=== PATIENT | female | born 1985 | race African-American/Black ===

== ENCOUNTER 2023-05-05 02:19 | Emergency (ER) | payer OTHER, SELFPAY ==
[2023-05-05 02:26] VITALS: BP 152/105; PULSE 60; RESP 20; TEMP 36.7; O2SAT 100; BMI 27.3
--- NOTE | 2023-05-05 02:41 | ED_ITS ---
HPI - Dental/Oral General Chief complaint: Dental/Oral Stated complaint: TOOTH PAIN Time Seen by Provider: 05/05/23 02:28 Source: patient Mode of arrival: walk-in History of Present Illness HPI Narrative: Patient presents to emergency department complaining of left upper pain. Patient had a filling that fell out couple weeks ago. She denies any swelling, or drainage. Denies any sore throat or difficulty swallowing. States the pain radiates to her ear, and for headache. Patient has taken Tylenol for pain without any relief. She has a history of rheumatoid arthritis and is on methotrexate so states that she can't take a lot of medications. Related Data Home Medications Medication Instructions Recorded Confirmed famotidine 20 mg tablet 20 mg PO DAILY 05/05/23 05/05/23 folic acid 1 mg tablet 1 mg PO DAILY 05/05/23 05/05/23 methotrexate sodium 2.5 mg tablet 10 mg PO .weekly 05/05/23 05/05/23 prednisone 5 mg tablet 15 mg PO DAILY PRN Swelling/pain 05/05/23 05/05/23 Previous Rx's Medication Instructions Recorded clindamycin HCl 300 mg capsule 300 mg PO Q8H 7 days #21 caps 05/05/23 hydrocodone 5 mg-acetaminophen 325 1 tab PO Q6H PRN pain 5 days #10 05/05/23 mg tablet tabs Allergies Allergy/AdvReac Type Severity Reaction Status Date / Time No Known Drug Allergies Allergy Verified 05/05/23 02:26 Review of Systems ROS Status of ROS 10 or more systems reviewed and unremarkable except as noted in history and below Exam Narrative Exam Narrative: General: The patient is comfortable, alert and oriented x3, well appearing, non toxic in no apparent distress. Head: Atraumatic and normocephalic. Eyes: Normal conjunctiva ENT: The oropharynx is normal. No pharyngeal erythema, uvular edema, tonsillar exudates, asymmetry or trismus. Uvula is midline. Mouth is normal to inspection with the exception of a pain on percussion of the tooth #5 and evidence of dental caries. There is no evidence of facial asymmetry or abscess formation. Floor of the mouth is soft. No tenderness in the submental or submandibular space. No tongue elevation or deviation. The patient has no evidence of valerio apical abscess, gingivitis or other acute pathology. Airway is patent. Neck: The neck demonstrates normal range of motion. No meningeals signs are present. No stridor. No masses or lymphandenopathy noted. Respiratory: No acute distress, lungs are clear to auscultation, no wheezing, rhonchi, or rales noted. No stridor or retractions are noted. Cardiovascular: Regular rate and rhythm Skin: The skin exam shows no evidence of rashes Neuro: Alert and oriented x4, normal speech Lymphatic: No cervical lymphadenopathy Constitutional Vital Signs, click to edit/add: Last Vital Signs Temp 98.1 F 05/05/23 02:26 Pulse 60 05/05/23 02:26 Resp 20 05/05/23 02:26 BP 152/105 H 05/05/23 02:26 Pulse Ox 100 05/05/23 02:26 O2 Del Method Room Air 05/05/23 02:26 Course Vital Signs Vital signs: Vital Signs Temperature 98.1 F 05/05/23 02:26 Pulse Rate 60 05/05/23 02:26 Respiratory Rate 20 05/05/23 02:26 Blood Pressure 152/105 H 05/05/23 02:26 Pulse Oximetry 100 05/05/23 02:26 Oxygen Delivery Method Room Air 05/05/23 02:26 Temperature 98.1 F 05/05/23 02:26 Pulse Rate 60 05/05/23 02:26 Respiratory Rate 20 05/05/23 02:26 Blood Pressure 152/105 H 05/05/23 02:26 Pulse Oximetry 100 05/05/23 02:26 Oxygen Delivery Method Room Air 05/05/23 02:26 MDM - Dental/Oral MDM Narrative Medical decision making narrative: Patient given a prescription for clindamycin, and Mena. Patient advised follow-up with dentist Sunday morning. No additional indication for emergent studies at this time. I answered all questions. Discussed discharge instructions including standard anticipatory guidance and what should prompt a return to the emergency department, including if they get worse are not getting better or develops any new or concerning symptoms. I've given them specific time frame in which to follow-up, and who to follow-up with. The patient demonstrates understanding. Patient is nontoxic and stable for discharge with outpatient follow-up. This note was created with the assistance of a speech recognition program. Although the intention is to generate documents that actually reflects the content of the visit, no guarantees can be provided that every mistake has been identified and corrected by editing. Discharge Plan Discharge Chief Complaint: Dental/Oral Clinical Impression: Dental caries Patient Disposition: Home, Self-Care Time of Disposition Decision: 02:54 Condition: Good Mode of Transportation: Private Vehicle Prescriptions / Home Meds: New hydrocodone-acetaminophen 5-325 mg tablet 1 tab PO Q6H PRN (Reason: pain) 5 Days Qty: 10 0RF clindamycin HCl 300 mg capsule 300 mg PO Q8H 7 Days Qty: 21 0RF No Action famotidine 20 mg tablet 20 mg PO DAILY Rx Instructions: HS folic acid 1 mg tablet 1 mg PO DAILY methotrexate sodium 2.5 mg tablet 10 mg PO .weekly prednisone 5 mg tablet 15 mg PO DAILY PRN (Reason: Swelling/pain) Instructions: Toothache (ED) Stand Alone Forms: Portal Instructions Referrals: Physician,Non-Staff, MD [Primary Care Provider] - 1 week Discharge Date/Time: 05/05/23 03:18
--- NOTE | 2023-05-05 02:42 | PC.NURSE ---
patient states she has two broken teeth left upper. Broken for over a year. Pain began today and worsening
[2023-05-05] MEDS: HYDROCODONE/ACETAMINOPHEN 5-325 MG TABLET 1 TAB PO (03:15)
== END 2023-05-05 03:18 | disposition home or self-care (01) ==
PROVIDERS: Emergency Provider Emergency Medicine
DX: K02.9 Dental caries, unspecified (principal); Z79.899 Other long term (current) drug therapy
CPT/HCPCS: 99283

== ENCOUNTER 2023-06-19 16:32 | Emergency (ER) | payer OTHER, SELFPAY ==
[2023-06-19 16:49] VITALS: BP 114/73; PULSE 62; RESP 18; TEMP 36.8; O2SAT 99; BMI 25.4
--- NOTE | 2023-06-19 17:29 | ED.DENTAL1 ---
HPI - Dental/Oral General Chief complaint: Dental/Oral Stated complaint: DENTAL PAIN Time Seen by Provider: 06/19/23 17:23 Source: patient Mode of arrival: walk-in History of Present Illness HPI Narrative: patient is a 38-year-old female who presents to the emergency department for continued issues with her teeth. She was seen in this emergency department two months ago for the same. She states she has seen her dentist multiple times in the keep doing procedures to try to save her teeth but she states she would like the tooth pulled and has an appointment pending for this. She states a small chunk of the tooth broke off several days ago when she has had an increase in pain to the left side of the face/left maxilla. She denies a possibility of . No medications taken prior to arrival today. She has not had any significant drainage from the teeth, no fevers or difficulty swallowing. Related Data Home Medications Medication Instructions Recorded Confirmed famotidine 20 mg tablet 20 mg PO DAILY 05/05/23 05/05/23 folic acid 1 mg tablet 1 mg PO DAILY 05/05/23 05/05/23 methotrexate sodium 2.5 mg tablet 10 mg PO .weekly 05/05/23 05/05/23 prednisone 5 mg tablet 15 mg PO DAILY PRN Swelling/pain 05/05/23 05/05/23 Previous Rx's Medication Instructions Recorded clindamycin HCl 300 mg capsule 300 mg PO Q8H 7 days #21 caps 05/05/23 hydrocodone 5 mg-acetaminophen 325 1 tab PO Q6H PRN pain 5 days #10 05/05/23 mg tablet tabs clindamycin HCl 150 mg capsule 300 mg PO Q6H 10 days #80 caps 06/19/23 ketorolac 10 mg tablet 10 mg PO TID PRN pain #10 tabs 06/19/23 ondansetron 4 mg disintegrating 4 mg PO Q6H PRN nausea and 06/19/23 tablet vomiting #12 tabs Allergies Allergy/AdvReac Type Severity Reaction Status Date / Time No Known Drug Allergies Allergy Verified 05/05/23 02:26 Review of Systems ROS Constitutional Denies: fever or chills Ears, nose, mouth, and throat Denies: throat pain Respiratory Denies: shortness of breath or cough Gastrointestinal Denies: nausea or vomiting Integumentary/Breast Denies: rash Endocrine Denies: excessive urination Hematologic/Lymphatic Denies: easy bruising Exam Narrative Exam Narrative: Gen.: Awake, alert, in no distress Head: Normocephalic, atraumatic ENT: Moist mucous membranes, multiple dental caries, tooth #13 with multiple erosions noted and root exposure. Gumline is edematous but there is no visible abscess or drainage. Uvula midline with airway widely open and patent. Clear speech. No trismus or drooling; no swelling of the mandible or maxilla, left tympanic membrane is clear Respiratory: No respiratory distress Extremities: Moves extremities equally Psych: Normal mood and affect Neuro: No focal neuro deficit Skin: Warm, dry, intact Constitutional Vital Signs, click to edit/add: Last Vital Signs Temp 98.3 F 06/19/23 16:49 Pulse 62 06/19/23 16:49 Resp 18 06/19/23 16:49 BP 114/73 06/19/23 16:49 Pulse Ox 99 06/19/23 16:49 O2 Del Method Room Air 06/19/23 16:49 Course Vital Signs Vital signs: Vital Signs Temperature 98.3 F 06/19/23 16:49 Pulse Rate 62 06/19/23 16:49 Respiratory Rate 18 06/19/23 16:49 Blood Pressure 114/73 06/19/23 16:49 Pulse Oximetry 99 06/19/23 16:49 Oxygen Delivery Method Room Air 06/19/23 16:49 Temperature 98.3 F 06/19/23 16:49 Pulse Rate 62 06/19/23 16:49 Respiratory Rate 18 06/19/23 16:49 Blood Pressure 114/73 06/19/23 16:49 Pulse Oximetry 99 06/19/23 16:49 Oxygen Delivery Method Room Air 06/19/23 16:49 MDM - Dental/Oral MDM Narrative Medical decision making narrative: patient treated for dental caries with clindamycin,topical analgesia and NSAIDs. She is given a referral for additional local dentistry. return to the Emergency Room if symptoms change or worsen. Discharge Plan Discharge Chief Complaint: Dental/Oral Clinical Impression: Dental caries, Toothache Patient Disposition: Home, Self-Care Time of Disposition Decision: 17:24 Condition: Good Prescriptions / Home Meds: New clindamycin HCl 150 mg capsule 300 mg PO Q6H 10 Days Qty: 80 0RF ketorolac 10 mg tablet 10 mg PO TID PRN (Reason: pain) Qty: 10 0RF ondansetron 4 mg tablet,disintegrating 4 mg PO Q6H PRN (Reason: nausea and vomiting) Qty: 12 0RF No Action famotidine 20 mg tablet 20 mg PO DAILY Rx Instructions: HS folic acid 1 mg tablet 1 mg PO DAILY methotrexate sodium 2.5 mg tablet 10 mg PO .weekly prednisone 5 mg tablet 15 mg PO DAILY PRN (Reason: Swelling/pain) hydrocodone-acetaminophen 5-325 mg tablet 1 tab PO Q6H PRN (Reason: pain) 5 Days Qty: 10 0RF clindamycin HCl 300 mg capsule 300 mg PO Q8H 7 Days Qty: 21 0RF Instructions: Toothache (ED) Additional Instructions: Follow up with dental Stand Alone Forms: Portal Instructions Referrals: FAMILY,[facility] [Primary Care Provider] - 1 week
[2023-06-19] MEDS: BENZOCAINE 30 ML, lidocaine HCL 15 ML MM (17:45)
== END 2023-06-19 17:48 | disposition home or self-care (01) ==
PROVIDERS: Emergency Provider Emergency Medicine Emergency Medical Services
DX: K02.9 Dental caries, unspecified (principal); K08.89 Other specified disorders of teeth and supporting structures; Z79.899 Other long term (current) drug therapy
CPT/HCPCS: 99283

== ENCOUNTER 2025-10-14 05:46 | Emergency (ER) | payer OTHER, SELFPAY ==
--- OUTSIDE RECORDS SUMMARY | 2021-05-30 08:45 | XMS_ITS | Continuity of Care Document ---
Author Organization [facility] Address [address] [place] [address] Phone Care Team Providers Care Occupational Therapy Supervisor Name Role Phone Fede Leonardo Unavailable Unavailable Allergies, Adverse Reactions, Alerts Substance Reaction Status Criticality No Known allergies Procedures Procedure Date Covid Testing [facility] PREV VISIT, [facility] [place], AGE 18-39 CHLAMYDIA & N GONORRHOEAE DNA, SDA OFFICE/OUTPATIENT VISIT, [facility] SPECIMEN HANDLING CARE COORDINATION RISK ASSISSMENT COUNSELING AND EDUCATION OFFICE/OUTPATIENT VISIT, EST ROUTINE VENIPUNCTURE CARE COORDINATION OFFICE/OUTPATIENT VISIT, EST ROUTINE VENIPUNCTURE COUNSELING AND EDUCATION CARE COORDINATION OFFICE/OUTPATIENT VISIT, [facility] TB INTRADERMAL TEST HIGH RISK PATIENT MONITORING COUNSELING AND EDUCATION OFFICE/OUTPATIENT VISIT, [facility] ROUTINE VENIPUNCTURE CARE COORDINATION OFFICE/OUTPATIENT VISIT, [facility] [place] SPECIMEN HANDLING CARE COORDINATION COUNSELING AND EDUCATION URINALYSIS, AUTO, W/O SCOPE ASSAY OF URINE CREATININE URINE TEST OFFICE/OUTPATIENT VISIT, [facility] ROUTINE VENIPUNCTURE RISK ASSISSMENT CARE COORDINATION COUNSELING AND EDUCATION OFFICE/OUTPATIENT VISIT, EST URINE TEST PREV VISIT, EST, AGE 18-39 SPECIMEN HANDLING URINE TEST Contraceptive pills for bc THIN PREP PAP W/REFLEX TO ASCUS 009 Advance Directives Directive Yes / No Effective Date File Name No Information Encounters Encounter Description Practice Location Reason(s) For Visit Diagnoses Date Provider Providers Copied on Encounter [facility], [address], [place], [id number], [place] tel:[phone] [facility] No Information Hari Caputo. [address], [place], [id number], [place]. tel:[phone] PREV VISIT, NEW, AGE 18-39 [facility], [address] [place], [place], [id number], [place] tel:[phone] [facility] STI female (chief complaint) Screening examination for venereal disease Natalie Walton. [address], [place], [id number], [place]. tel:[phone] OFFICE/OUTPAT IENT VISIT, [facility], [address], [place], [id number], [place] tel:[phone] [facility] No Information Kal Howard. [address], [place], [id number]. tel:[phone] OFFICE/OUTPAT IENT VISIT, [facility], [address], [place], [id number], [place] tel:[phone] [facility] No Information Hari Caputo. [address], [place], [id number], [place]. tel:[phone] OFFICE/OUTPAT IENT VISIT, [facility], [address], [place], [id number], [place] tel:[phone] [facility] No Information Yonasi DO Mistry. [address], [place], [id number], [place]. tel:[phone] OFFICE/OUTPAT IENT VISIT, [facility], [address], [place], [id number], [place] tel:[phone] [facility] No Information Kal Howard. [address], [place], [id number]. tel:[phone] OFFICE/OUTPAT IENT VISIT, [facility], [address], [place], [id number], [place] tel:[phone] [facility] No Information Yonasi DO Mistry. [address], [place], [id number], [place]. tel:[phone] OFFICE/OUTPAT IENT VISIT, [facility], [address], [place], [id number], [place] tel:[phone] [facility] No Information Frank Chun. [address], [place], [id number]. tel:[phone] OFFICE/OUTPAT IENT VISIT, [facility], [address], [place], [id number], [place] tel:[phone] [facility] No Information Josh Og. [address], [place], [id number], [place]. tel:[phone] OFFICE/OUTPAT IENT VISIT, [facility], [address], [place], [id number], [place] tel:[phone] [facility] No Information Frank Chun. [address], [place], [id number]. tel:[phone] PREV VISIT, [facility], AGE 18-39 [facility], [address], [place], [id number], tel:[phone] [facility] No Information Kal Howard. [address], [place], [id number]. tel:[phone] Family History Family Member Type Diagnosis Age At Onset No Information Payers Payer name Insurance type Covered libertarian ID Authoriza tion(s) No Information Social History Type Description Quantity Date Captured Comments Sex Female Smoking Status No Information Sexual Orientation Straight or heterosexual Gender Identity Female Chief Complaint And Reason For Visit No Information Reason For Referral Reason For Referral No Information Plan Of Treatment Date Type Action Status Goal Tobacco cessation counseling completed History Of Present Illness Encounter Date Complaint History Of Prese nt Illness No Information Functional Status Date Functional Assessmen t No Information Instructions Date Instruction Additional Infor mation Avoid sexual activit y while you await your test results. Related to Screening examination for venereal disease No treatment indicat ed today. Call for test results. Related to Screening examination for venereal disease Assessments Type Assessment Date No Information Patient Care Teams Name Effective Dates (start - stop) Status Members No Information
--- OUTSIDE RECORDS SUMMARY | 2025-01-12 08:00 | XMS_ITS ---
Author Organization [facility] Address [address] [facility] [place] [address] Care Team Providers Care Booth Cashier Name Role Phone Shaw Ley Primary Care Provider [phone] Don Lamar [phone] REASON FOR VISIT ANNUAL [place] Encounters Encounter Location Date Provider Diagnosis [facility] [address] [place] [address] 01/12/2025 Don Lamar Plan Of Treatment No Information Progress Notes * MARY MORENOOB:1985 (40 yo F)Acc No.[id number]:01/12/2025 Annual Wellness Visit Patient: PEPE BLAIR Provider:?CLYDE SimmsOB:1985 ???Age:40 Y???Sex:FemaleDate:01/12/2025Phone:[phone]:[address] [place], [place] [id number]:Shaw Ley Subjective: * Chief Complaints: * A NNUAL [place] Billing Information: * Procedure Codes: * Electronic signature of Don Lamar DO on 10/14/2025 at 06:43 AM ESTSign off status: Pending * Appointment Provider: Lexy Lamar DO Date: 0 01/12/2025 Generated for Printing/Faxing/eTransmitting on:?10/14/2025 06:43 AM EST
[2025-10-14] VITALS (8 sets, daily range): BP systolic 114–124; BP diastolic 66–79; PULSE 71; TEMP 36.8; O2SAT 97–100; BMI 29.1
[2025-10-14 06:20] LABS: Hematocrit 36.0 % (36.0-48.0); Hemoglobin 12.2 g/dL (12.0-16.0); Mean Corpuscular HGB Conc 33.9 g/dL (29.9-35.2); Mean Corpuscular Hemoglobin 31.3 pg (26.7-34.0); Mean Corpuscular Volume 92.3 fL (81.0-99.0); Platelet Count 356 10^3/uL (150-450); Red Blood Count 3.90 10^6/uL (4.20-5.40); White Blood Count 7.1 10^3/uL (4.0-11.0)
--- NOTE | 2025-10-14 06:28 | ED.NAVMDI1 ---
HPI - Nausea/Vomiting/Diarrhea General Chief complaint: Nausea/Vomiting/Diarrhea Stated complaint: VOMITING, CHEST CONGESTION, BODY ACHES Time Seen by Provider: 10/14/25 05:53 Source: patient Mode of arrival: Wheelchair Limitations: no limitations History of Present Illness HPI Narrative: This 40-year-old female presents for evaluation of nausea, vomiting, diarrhea, fevers, chills, body aches with a cough and congestion. Her significant other works for the [employer] and had similar symptoms over the holiday week. She states her symptoms started 2 days ago with a cough, chills and bodyaches but now she has nausea vomiting and diarrhea. She states she cannot keep anything down. She has a history of rheumatoid arthritis and the chills and forceful vomiting is making her rheumatoid worse. She denies any chest pain. She is mildly short of breath and wheezing. She admits to tobacco use. She denies the possibility of . She is not having any urinary symptoms. Related Data Home Medications ?Medication ?Instructions ?Recorded ?Confirmed famotidine 20 mg tablet 20 mg PO DAILY 05/05/23 05/05/23 folic acid 1 mg tablet 1 mg PO DAILY 05/05/23 05/05/23 methotrexate sodium 2.5 mg tablet 10 mg PO .weekly 05/05/23 05/05/23 prednisone 5 mg tablet 15 mg PO DAILY PRN Swelling/pain 05/05/23 05/05/23 Previous Rx's ?Medication ?Instructions ?Recorded clindamycin HCl 300 mg capsule 300 mg PO Q8H 7 days #21 caps 05/05/23 hydrocodone 5 mg-acetaminophen 325 1 tab PO Q6H PRN pain 5 days #10 05/05/23 mg tablet tabs clindamycin HCl 150 mg capsule 300 mg (2 x 150 mg) PO Q6H 10 days 06/19/23 #80 caps ketorolac 10 mg tablet 10 mg PO TID PRN pain #10 tabs 06/19/23 ondansetron 4 mg disintegrating 4 mg PO Q6H PRN nausea and 06/19/23 tablet vomiting #12 tabs Allergies Allergy/AdvReac Type Severity Reaction Status Date / Time No Known Drug Allergies Allergy Verified 10/14/25 05:53 Review of Systems ROS Status of ROS 10 or more systems reviewed and unremarkable except as noted in history and below PFSH PFS Social History Little interest or pleasure in doing things: not at all Feeling down, depressed, or hopeless: not at all Exam Narrative Exam Narrative: Vital signs and Nursing Notes reviewed: Patient is afebrile with a normal pulse, normal blood pressure, she is not hypoxic with pulse ox of 99% on room air General: Awake, alert, oriented, nontoxic but uncomfortable appearing adult female, positive dry heaves, no respiratory distress HEENT: Normocephalic atraumatic, mucous membranes are pink and dry, no posterior pharyngeal erythema or exudate, no peritonsillar abscess Neck: Supple, no meningeal signs, no anterior or posterior cervical lymphadenopathy Chest: Lungs are clear to auscultation with good air entry, there is no wheezing rhonchi or rales appreciated no accessory muscle use, patient is speaking in complete sentences-no chest wall tenderness to palpation CVS: Regular rate and rhythm S1-S2, no murmurs rubs or gallops, pulses are brisk and equal bilaterally ABD: Soft, nondistended, nontender, no rebound guarding or rigidity, bowel sounds are normal, no pulsatile masses appreciated Extremities: Moving all extremities, no lower extremity tenderness or swelling noted Skin: Normal in appearance without rash,pallor, petechiae or purpura Neuro: No focal deficits Constitutional Vital Signs, click to edit/add: Last Vital Signs Temp 98.2 F 10/14/25 05:53 Pulse 71 10/14/25 05:53 Resp 18 10/14/25 05:53 BP 114/66 10/14/25 05:53 Pulse Ox 99 10/14/25 05:53 O2 Del Method Room Air 10/14/25 05:53 Course Vital Signs Vital signs: Vital Signs Temperature 98.2 F 10/14/25 05:53 Pulse Rate 71 10/14/25 05:53 Respiratory Rate 18 10/14/25 05:53 Blood Pressure 114/66 10/14/25 05:53 Pulse Oximetry 99 10/14/25 05:53 Oxygen Delivery Method Room Air 10/14/25 05:53 Temperature 98.2 F 10/14/25 05:53 Pulse Rate 71 10/14/25 05:53 Respiratory Rate 18 10/14/25 05:53 Blood Pressure 114/66 10/14/25 05:53 Pulse Oximetry 99 10/14/25 05:53 Oxygen Delivery Method Room Air 10/14/25 05:53 MDM - Nausea/Vomiting/Diarrhea MDM Narrative Medical decision making narrative: This 40-year-old female the history of rheumatoid arthritis presents for evaluation of 2 days of fevers, chills, body aches, cough with chest congestion and most recent development of nausea vomiting and diarrhea yesterday. She states she cannot keep anything down. Her significant other who is here with her states he brought this illness home from work. He works at the [employer] and became ill over the holiday. She is nontoxic but unwell with dry heaves, her vital signs are stable, she does have some mild expiratory wheezing. Abdomen is soft. Mucous membranes are dry. An IV was placed and she was medicated with IV fluids, Zofran, Toradol and Pepcid. Influenza, CBC and comprehensive metabolic profile was ordered. She has a normal white count and stable hemoglobin. Electrolytes are normal with a mildly low potassium at 3.3. Influenza is negative. 1 view chest x-ray was ordered. Lab Data Labs: Lab Results 10/14/25 10/14/25 Range/Units 06:10 06:27 WBC 7.1 (4.0-11.0) 10^3/uL RBC 3.90 L (4.20-5.40) 10^6/uL Hgb 12.2 (12.0-16.0) g/dL Hct 36.0 (36.0-48.0) % MCV 92.3 (81.0-99.0) fL MCH 31.3 (26.7-34.0) pg MCHC 33.9 (29.9-35.2) g/dL RDW 14.5 (11.0-15.0) % Plt Count 356 (150-450) 10^3/uL MPV 9.4 L (9.5-13.5) fL Seg Neuts % (Manual) 83.0 H (43.0-75.0) Lymphocytes % (Manual) 2.0 L (20.5-60.0) % Atypical Lymphs % (Man) 10.0 % Monocytes % (Manual) 6.0 (1.7-12.0) % Eosinophils % (Manual) 0.0 L (0.9-7.0) % Basophils % (Manual) 0.0 L (0.2-2.0) % Neutrophils # (Manual) 5.89 (1.4-6.5) 10^3/uL Lymphocytes # (Manual) 0.14 L (1.20-3.80) 10^3/uL Abs Atypical Lymphs Man 0.71 Monocytes # (Manual) 0.42 (0.30-0.80) 10^3/uL Eosinophils # (Manual) 0.00 (0.00-0.70) 10^3/uL Basophils # (Manual) 0.00 (0.00-0.10) 10^3/uL Stomatocytes 2+ Sodium 138 (136-145) mmol/L Potassium 3.3 L (3.5-5.1) mmol/L Chloride 104 (98-107) mmol/L Carbon Dioxide 25.3 (21.0-32.0) mmol/L Anion Gap 12.0 BUN 5.0 L (7.0-18.0) mg/dL Creatinine 0.63 (0.55-1.02) mg/dL Est GFR ( Amer) >60 (>=60 mL/min/1.73m^2) Est GFR (Non-Af Amer) >60 (>=60 mL/min/1.73m^2) BUN/Creatinine Ratio 7.9 Glucose 94 (74-106) mg/dL Calcium 8.9 (8.5-10.1) mg/dL Total Bilirubin 0.5 (0.2-1.0) mg/dL AST 15 (15-37) U/L ALT 19 (14-59) U/L Alkaline Phosphatase 58 (46-116) U/L Total Protein 7.2 (6.4-8.2) g/dL Albumin 3.6 (3.4-5.0) g/dL Globulin 3.6 g/dL Albumin/Globulin Ratio 1.0 Influenza Type A Ag Negative Influenza Type B Ag Negative Discharge Plan Discharge Patient Disposition: Still a Patient
[2025-10-14] MEDS: FAMOTIDINE/PF 20 MG/2 ML VIAL IV (06:30)
[2025-10-14] MEDS: 0.9 % SODIUM CHLORIDE 1,000 ML 1000 ML IV (06:30)
[2025-10-14] MEDS: KETOROLAC TROMETHAMINE 30 MG/ML VIAL IVP (06:31)
[2025-10-14 06:34] LABS: Atypical Lymphocytes % Manual 10.0 %; Atypical Lymphocytes Abs Man 0.71; Basophils Abs Manual 0.00 10^3/uL (0.00-0.10); Basophils Percent Manual 0.0 % (0.2-2.0); Eosinophils Absolute Manual 0.00 10^3/uL (0.00-0.70); Eosinophils Percent Manual 0.0 % (0.9-7.0); Lymphocytes Absolute Manual 0.14 10^3/uL (1.20-3.80); Lymphocytes Percent Manual 2.0 % (20.5-60.0); Monocytes Absolute Manual 0.42 10^3/uL (0.30-0.80); Monocytes Percent Manual 6.0 % (1.7-12.0); Segmented Neut Absolute Manual 5.89 10^3/uL (1.4-6.5); Segmented Neutrophils % Manual 83.0 (43.0-75.0)
[2025-10-14 06:35] LABS: Stomatocytes 2+
[2025-10-14 06:39] LABS: Alanine Aminotransferase 19 U/L (14-59); Albumin Globulin Ratio 1.0; Albumin Level 3.6 g/dL (3.4-5.0); Alkaline Phosphatase 58 U/L (46-116); Anion Gap 12.0; Aspartate Amino Transferase 15 U/L (15-37); Blood Urea Nitrogen 5.0 mg/dL (7.0-18.0); Calcium 8.9 mg/dL (8.5-10.1); Carbon Dioxide 25.3 mmol/L (21.0-32.0); Chloride 104 mmol/L (98-107); Estimated GFR (African America >60 (>=60 mL/min/1.73m^2); Estimated GFR (Non-African Ame >60 (>=60 mL/min/1.73m^2); Globulin 3.6 g/dL; Glucose 94 mg/dL (74-106); Potassium 3.3 mmol/L (3.5-5.1); Sodium 138 mmol/L (136-145); Total Protein 7.2 g/dL (6.4-8.2)
--- OUTSIDE RECORDS SUMMARY | 2025-10-14 06:43 | XMS_ITS | Clinical Summary ---
Author Organization [facility] tem Address [id number] [address] [place] [address] Care Team Providers Care Weigher Bulker Name Role Phone Unavailable Primary Care Provider Unavailabl e Allergies No known active allergies Medications MedicationSigDispense QuantityRefillsLast FilledStart DateEnd DateStatus famotidine (PEPCID) 20 mg tablet Take 1 tablet (20 mg total) by mouth nightly as needed.5Active ergocalciferol (VITAMIN D2) 1,250 mcg (50,000 unit) capsule Indications:Vitamin D deficiencyCapsule weekly for 8 weeks then once monthly 12 capsule 5Active amitriptyline (ELAVIL) 10 mg tablet Indications:Rheumatoid arthritis, involving unspecified site, unspecified whether rheumatoid factor present ([facility])One capsule at 8 PM each night 30 tablet 5Active methotrexate 2.5 mg chemo tablet Indications:Rheumatoid arthritis, involving unspecified site, unspecified whether rheumatoid factor present ([facility]),Methotrexate, penitentiary, current use Take 1 tablet by mouth once a week 6 tab weekly 24 tablet 5Active tiZANidine (ZANAFLEX) 2 mg tablet Indications:Rheumatoid arthritis, involving unspecified site, unspecified whether rheumatoid factor present ([facility])One tab at 8:00 p.m.each night 30 tablet 5Active folic acid (FOLVITE) 1 mg tablet Indications:Rheumatoid arthritis, involving unspecified site, unspecified whether rheumatoid factor present ([facility]-HCC),Methotrexate, equipment operator intermodal yard, current use Take 1 tablet (1 mg total) by mouth in the morning. 30 tablet 5Active predniSONE (DELTASONE) 5 mg tablet Indications:Rheumatoid arthritis, involving unspecified site, unspecified whether rheumatoid factor present ([facility]-HCC)Take 1 tablet (5 mg total) by mouth in the morning and 1 tablet (5 mg total) before bedtime. 30 tablet tive Active Problems No known active problems Encounters DateTypeDepartmentCare DpepPahhvojtqji43/11/2025Refill [facility] [address] [place] [address] Sarita Ortiz MD Rheumatoid arthritis, involving unspecified site, unspecified whether rheumatoid factor present ([facility])08/29/2025Refill [facility] [address] [place] [address] Sarita Ortiz MD Rheumatoid arthritis, involving unspecified site, unspecified whether rheumatoid factor present ([facility]); Methotrexate, equipment operator intermodal yard, current use07/22/2025Refill [facility] [address] [place] [address] Sarita Ortiz MD Rheumatoid arthritis, involving unspecified site, unspecified whether rheumatoid factor present ([facility])from Last 3 Months Social History Tobacco UseTypesPacks/DayYears UsedDateSmoking Tobacco: Never Assessed CommentsUnknownSex and Gender InformationValueDate RecordedSex Assigned at Not on fileLegal RzwDlzxds76/27/2025 10:15 AM ESTGender IdentityNot on file Sexual OrientationNot on file Last Filed Vital Signs Vital SignReadingTime TakenCommentsBlood Mumbvmfu496/7405 9:28 AM EDT Pulse--Temperature--Respiratory Kqrb099502/25/2025 9:28 AM EDTOxygen Saturation-- Inhaled Oxygen Concentration--Rkggai28.1 kg (148 lb)02/25/2025 9:28 AM EDTHeight --Body Mass Index-- Plan of Treatment Health MaintenanceDue DateLast DoneCommentsDepression Ghrmbcswk75/30/1995Tobacco Yxicthtut50/30/1995Adult BMI Ldpcvzayv15/30/2001DTaP,Tdap and Td Vaccines (1 - Tdap)2002Pap Smear01/12/2004Influenza Ppzelov40/01/539439/ Medical Devices Not on file
--- OUTSIDE RECORDS SUMMARY | 2025-10-14 06:44 | XMS_ITS | Patient Health Record ---
Author Organization [facility] Address [address] [place] [address] Care Team Providers Care Director Of Casino Marketing Name Role Phone Shaw Ley Primary Care Provider Eliceo Castro Unavailable [phone] Don Lamar Unavailable [phone] Lela Rodriguez Unavailable [phone] Allergies No Known Allergies Reason For Referral Reason REFERRAL OVER 60 DAY S OLD Rheumatoid arthritis. Patient would like a provider closer to the [facility] for closer appointments. Patient lives in [place]. *FAXED 12/11 Diagnosis 1 Rheumatoid arteritis (M05.20) Referral Organization [facility] Referring Provider First Name Don Referring Provider Last Name Willard Referring Provider Speciality [facility] Referred Provider [facility], . Referred Provider Specialty Rheumatology Referral Priority Routine Medications Medication SIG (Take, Route, Frequency, Duration) Notes Start Date End Date Status Amitriptyline HCl 10 MG Tablet 1 tablet at bedti me Orally Once a day ActivetiZANidine HCl 2 MG Tablet1 tablet at bedtime as needed Orally Once a day ActivepredniSONE 5 MG Tablet1 TABLET ORALLY TWICE DAILY; Duration: 30 daysActive Methotrexate 2.5 MG Tablet4 TABLETS Orally once a week; Duration: 28 daysActive Famotidine 20 MG TabletTAKE 1 TABLET BY MOUTH EVERY DAY AT BEDTIME ONLY NEEDED; Duration: 90ActiveFolic Acid 1 MG Tablet1 tablet Orally Once a dayActive Vitamin D2 10 MCG (400 UNIT) TabletTAKE 2 TABLETS BY MOUTH EVERY DAY; Duration: 90ActiveDiclofenac Sodium 1 % GelAPPLY TO AFFECTED AREA DAILY NEEDED FOR 30 DAYS; Duration: 30Active Immunizations Vaccine Route Administration Date Status Comme nts Pneumococcal 20 - PREVNAR 20 IM Intramuscular 11/27/2022 Administered Influenza 3+ PRIVATEIM Evtwvecutgdxj43/13/2023dministered Social History Tobacco Use: Social History Observation Description Date Details (start date - stop date) Current Smoker NA - NA Social History Social DeterminantsSocial InfoQuestionAnswerNotesPRAPAREDate Completed/Updated: 12/10/2024What is your current housing situation?I have housingAre you worried about losing your housing?NoWhat is the highest level of school that you have finished?Less than a high school degreeWhat is your current work situation?forwarder operator or temporary workIn the past year, have you or any family members you live with been unable to get any of the following when it was really needed? Check all that applyI do not have problems meeting my needsHas lack of transportation kept you from medical appointments, meetings, work or from getting things needed for daily living?NoHow often do you see or talk to people that you care about and feel close to? (For example: talkingto friends on the phone, visiting friends or family, going to episcopalian or club meetings)More than 5 times a weekHow stressed are you? Stress is when someone feels tense, nervous, anxious, or cant sleep at night because their mind is troubledA little bitIn the past year have you spent more than 2 nights in a row in a long-term, nursing home, longterm center, or juvenile correctional facility?NoAre you a refugee?NoWhat country are you from? [place]Do you feel physically and emotionally safe where you currently live?YesIn the past year, have you been afraid of your partner or ex-partner?No PRAPARE Score:5GeneralSocial InfoQuestionAnswerNotesTransition of Care: ER/UC/hospital since last office visit?NoSpecialist seen since last office visit?NoSubstance abuse/mental health issues of patient/familyPatient - Depression, OtherMARIJUANAAbility to understand healthcare/treatmentPatient:Good Sexual Hx:Had sex in the last 12 months (vaginal, oral, or anal)?Yes? withMen onlySocial/Support Concerns:Patient:NoBehaviors affecting healthPoor/Risky Behaviors:Denies-Communication Barrier:Language Barrier?:NoDrug/Alcohol:Social InfoQuestionAnswerNotesAUDIT-C (Standard)Did you have a drink containing alcohol in the past year?ClPulzwc3LmtxftrmjrsfqbJnblxqzrNujymst Use:Social InfoQuestion AnswerNotesTobacco Control (Standard)Tobacco use:Current smoker? How often do you smoke cigarettes?Every day? How many cigarettes a day do you smoke?11-20? How soon after you wake up do you smoke your first cigarette?Within 5 minutes? Are you interested in quitting?Thinking about quitting Problems Problem Type SNOMED Code ICD Code Onset Dates Problem Status W/U Status Risk Notes Problem Tobacco use (583085990) Tobacco use (Z72. 0) ActiveconfirmedProblemVitamin D deficiency (48685588)Vitamin D deficiency (E55.9)ActiveconfirmedProblemIntermenstrual bleeding - irregular (09247963) Menorrhagia with irregular cycle (N92.1)ActiveconfirmedProblemHand joint pain (578690355)Pain in joints of left hand (M25.542)ActiveconfirmedProblemTobacco user (589661764)Cigarette nicotine dependence without complication (F17.210) ActiveconfirmedProblemRheumatoid arthritis (86725620)Rheumatoid arthritis involving multiple sites with positive rheumatoid factor (M05.79)Activeconfirmed ProblemRheumatoid arteritis (066123726)Rheumatoid arteritis (M05.20)Active confirmed Vital Signs Heart Rate 73 /min 07/31/2025 Dxutwnpzkpl85.5 degrees Ucprsfmcfz73/17/2025Respiratory Rate18 /min02/18/2025 Efqsnfjx66 %07/31/2025lood pressure rfueriafl51 mm Hg07/31/20250714Ogfgle90 in 07/31/2025lood pressure xsaaztzs057 mm Hg07/31/20257583Flnbpz313.0 lbs1MI 28.9 kg/m207/31/2025 Encounters Encounter Location Date Provider Diagnosis [facility] [address] [place] [address] [facility] [place] [address]/10/2024 [facility] [place] [id number]/[facility] [place] [address]/[facility] AicadalbertoethRheumatoid arthritis involving multiple sites with positive rheumatoid factor M05.79[facility] [place] [address]/04/2025Kyle zzzDenihanRheumatoid arteritis M05.20[facility] [place] [address]/Hannah YoungRheumatoid arthritis involving multiple sites with positive rheumatoid factor M05.79 and Vitamin D deficiency E55.9[facility] [place] [address]/Simon NadeauRheumatoid arteritis M05.20 and Cigarette nicotine dependence without complication F17.210 Assessments Encounter Date Diagnosis (ICD Code) Assessment Notes Treatment Notes Treatment Clinical Notes Section Notes 12/10/2024 Cigarette nicotine d ependence without complication (ICD-10 - F17.210) I have discussed options for treatment of nicotine addiction with this patient including nicotine replacement and pharmacologic options. This patient states she will try to quit cold turkey at this time, but will return if she requires assistance for this purpose. She understands that rheumatoid arthritis can be made worse by nicotine.12/10/2024Rheumatoid arteritis (ICD-10 - M05.20)This patient has a history of rheumatoid arthritis treated with methotrexate. She been initiated ondaily low dose oral prednisone last year by her sculpture instructor. She experienced a lapse in health insurance and ran out of this medication in October. She states she has still had access to her methotrexate. She endorses significant limitations to her life due to joint pain spread throughout her body with the worst being in her hands, shoulders, and hips. We will provide this patient with a shortcourse of steroids and a referral to a new sculpture instructor for further management.08/28/2025Rheumatoid arthritis involving multiple sites with positive rheumatoid factor (ICD-10 - M05.79)07/31/2025Vitamin D deficiency (ICD-10 - E55.9)History of vitamin D deficiency requiring supplementation. Will refill and recheck her levels.07/31/2025Rheumatoid arthritis involving multiple sites with positive rheumatoid factor (ICD-10 - M05.79)Patient has a history of rheumatoid arthritis and was previously seeing a sculpture instructor in the [place] area. She is no longer able to see him because her lost his job and insurance. She wouldlike us to bridge her medications until she is able to get back on insurance. Patient was previously on methotrexate, prednisone, amitriptyline, and tizanidine. Patient is unsure of the reason for the tizanidine and amitriptyline and would like to trial being off these medications. I will refill her methotrexate as well as order a repeat CMP and CBC to check her blood counts and kidney and liver functions. Patient did have a chest x-ray completed when the methotrexate was started. Patient denies any chance that she could be . I expressed my discomfort with monitoring this medication for the patient long-term. We will eventually be placing a rheumatology referral when she has insurance. . Patient explained that she intends to get Medicaid insurance and will call us within the next few days to update us on her progress with that.02/18/2025Rheumatoid arteritis (ICD-10 - M05.20)Based on her previous labs and symptoms, I am also suspicious for rheumatoid arthritis. Fortunatelyshe is already following with rheumatology (Dr. Ortiz in [place]) and has an upcoming appointment with him. She had no injuries or traumas, therefore I do not feel any imaging is warranted at this time and we will treat this as a suspected rheumatoid arthritis flare. There is no evidence of infection at this time. She is currently being tapered off of her methotrexate by rheumatology. I recommended we treat with a prednisone taper and she and her significant other are agreeable to this. I did advise her to call her sculpture instructor and let him know of this plan and that she is being placed on steroids which will be a long enough taper to bridge her to her next appointment with him. I emphasized the importance of continuing to follow with her sculpture instructor as directed by him. Warning signsdiscussed. She is to call with any questions or concerns. Patient and her significant other state understanding and are agreeable with this plan of care12/10/2024OtherBody Mass Index: Care Instructions material was printed, Learning About Benefits of Quitting Smoking material was qppxfyc7002/18/2025OtherBody Mass Index: Care Instructions material was printed, Learning About Benefits of Quitting Smoking material was printed Medication reconciliation completed by pharmacist. Med list is up to date. Plan Of Treatment Pending Test Test Name Order Date Comprehensive Metabolic Panel 07/31/2025 Vitamin D 25 Hydroxy 07/31/2025 Complete Blood Count Auto Diff Insurance Providers Payer Name Payer Address Payer Phone Subscriber Number Group Number Insured Name Patient Relationship to Insured Coverage Start Date Coverage End Date [facility] [address] [place] [address] [phone] [id number] MARCUS MORENOelf - patient is the viblexj1312/10/2024zDENTAL BUCKEYE-termed 11/14/22[address] [address] [place] [id number], BRANDY Self - patient is the [id number] MEDICAID [employer] after BUCKEYE-termed 11/14/22[address] [place] [id number], SARICRISTAelf - patient is the [id number] [place] MedicaidPO [address] [facility]S [facility] [place] [phone] [id number], BRANDYSelf - patient is the [id number] [facility] BuckeyePO [address] [place] [id number] MARCUS MORENOelf - patient is the [id number] [employer] EnvolvePO [address] [address] [place] [phone], BRANDY Self - patient is the [id number] Wrap C[employer] [address]key[address]PO [address] [place] [id number], BRANDYSelf - patient is the Medical (General) History Medical History History ICD Code Rheumatoid Arthritis Surgical History Surgery Date(Month/Year) D&C Left Salpingectomytubal ligation, then ectopic resulting in left salpingectomyHospitalization History Reason Date(Month/Year) See surgical
--- OUTSIDE RECORDS SUMMARY | 2025-10-14 06:44 | XMS_ITS | Clinical Summary ---
Author Organization [facility] Address [address] [place] [address] Care Team Providers Care Frame And Scrap Crusher Name Role Phone Unavailable Primary Care Provider Unavailabl e Social History Tobacco UseTypesPacks/DayYears UsedDateSmoking Tobacco: Never Assessed CommentsUnknownSex and Gender InformationValueDate RecordedSex Assigned at Not on fileLegal TotYmrnwl31/15/2023 6:45 PM EDTGender IdentityNot on fileSexual OrientationNot on file Plan of Treatment Not on file
--- OUTSIDE RECORDS SUMMARY | 2025-10-14 06:44 | XMS_ITS | Clinical Summary ---
Author Organization [facility] Address [address] [place] [address] Care Team Providers Care Buckle Attaching Machine Operator Name Role Phone Sunitha Lazo DO Unavailable Allergies No known active allergies Medications MedicationSigDispense QuantityRefillsLast FilledStart DateEnd DateStatus famotidine (PEPCID) 20 mg tablet 20 mg.3Active folic acid 1 mg tablet Indications:Rheumatoid arthritis involving multiple sites with positive rheumatoid factor (HCC)Take 1 tablet by mouth once daily. 90 tablet 3Active predniSONE (DELTASONE) 5 mg tablet Indications:Rheumatoid arthritis involving multiple sites with positive rheumatoid factor (HCC)TAKE UP TO 3 TABLETS BY MOUTH ONCE A DAY NEEDED 90 tablet 4Active methotrexate 2.5 mg tablet Indications:Rheumatoid arthritis involving multiple sites with positive rheumatoid factor (HCC)TAKE 6 TABLETS BY MOUTH ONE TIME A WEEK. 72 tablet 5Active Immunizations ImmunizationAdministration DatesNext Dueinfluenza (IIV4) vaccine, quadrivalent (AFLURIA, FLULAVAL, FLUZONE)11/27/2022neumococcal conjugate (PCV20) vaccine, 20 valent (PREVNAR 20)11/27/2022 Social History Tobacco UseTypesPacks/DayYears UsedDateSmoking Tobacco: Every DayCigarettes Smokeless Tobacco: Never Tobacco Cessation:Ready to Q uit: Not Asked; Counseling Given: Not Answered Alcohol UseStandard Drinks/WeekCommentsYes0 (1 standard drink = 0.6 oz pure alcohol)Area Deprivation IndexAnswerDate RecordedNational Score (1-100), lower number is lower cddq3020State Score (1-10), lower number is lower risk4 4Data from: https://www.neighborhoodatlas.medicine.[facility].edu/. Last address used for [address] [id number] and Gender InformationValueDate RecordedSex Assigned at BirthNot on fileLegal WraEwkmmc55/16/2023 10:56 AM ESTGender IdentityNot on fileSexual OrientationNot on file Last Filed Vital Signs Vital SignReadingTime TakenCommentsBlood Sujyumiy116/59012/12/2023 11:06 AM EST Nsjru267212/12/2023 11:06 AM ESTTemperature--Respiratory Rate--Oxygen Saturation-- Inhaled Oxygen Concentration--Apoygj78.6 kg (153 lb 7 oz)12/12/2023 11:06 AM EST Rtznnl485.5 cm (5' 2.01 )12/12/2023 11:06 AM ESTBody Mass Index28.0612/12/2023 11:06 AM EST Plan of Treatment Health MaintenanceDue DateLast DoneCommentsAnxiety Gitbaewti91/30/2001Depression Phrpgcjke87/30/2001HIV Cywovgwnb60/30/2001Hepatitis C Wpxczexmj84/30/2001 DTaP,Tdap,Td Vaccine (1 - Tdap)2002Hepatitis B Vaccine (1 of 3 - 19+ 3- dose series)2002Cervical Cancer Ffyqnfjyx21/30/2004HPV Vaccine (1 - 3-dose SCDM series)2010Mammogram Jdzhymkgs85/30/2023Covid-19 Vaccine (1 - season)2025Influenza Vaccine (#1)502/3Pneumococcal Vaccine Macqqlgsn15/13/2023 Insurance * Guarantor: Pierce Pineda TypeRelation to PatientDate of BirthPhone Billing AddressPersonal/QadyepXqik1985 [address] [address] Care Teams Team MemberRelationshipSpecialtyStart DateEnd Date Sunitha Lazo DO [address] [place] [address] [facility]10/30/22
--- NOTE | 2025-10-14 06:50 | XR_ITS ---
The [address] [address] Patient Name: PEPE MORENO MRN: [id number] date: 1985 Sex: F Assigned Patient Location: ED.MAIN Current Patient Location: Accession/Order Number: [id number] Exam Date: 10/14/2025 06:52 Report Date: 10/14/2025 08:41 At the request of: KOTA MOBLEY MD Procedure: XR chest 1V PA CHEST: CLINICAL HISTORY: fever, cough COMPARISON: 10/05/2022 The heart is normal in size. The lungs are clear. The pulmonary vasculature is normal. Mediastinum and hilar regions are unremarkable. No pleural effusions are seen. Visualized bones are intact. XR/XR chest 1V IMPRESSION: NEGATIVE CHEST. Impression dictated by: Jose Heaton M.D. 10/14/2025 8:41 AM Dictation Location: [place] [address] Electronically authenticated by: [id number] Y Date: 10/14/2025 08:41
== END 2025-10-14 08:36 | disposition home or self-care (01) ==
PROVIDERS: Emergency Provider Emergency Medicine
DX: B34.9 Viral infection, unspecified (principal); M06.9 Rheumatoid arthritis, unspecified; F17.200 Nicotine dependence, unspecified, uncomplicated
CPT/HCPCS: 36415; 71045; 80053; 85007; 85027; 87804; 96361; 96374; 96375; 99284; J1885; J2405; J3490